=== PATIENT | male | born 1965 | race Caucasian/White ===

== ENCOUNTER 2020-02-13 04:46 | Emergency (ER) | payer BC, OTHER ==
--- NOTE | 2020-02-13 21:35 | ER ---
Nurse's Notes [facility] Name: Tayo Ferraro Age: 54 yrs Sex: Male : 1965 Arrival Date: 02/13/2020 Time: 20:48 Bed Waiting Private MD: Diagnosis: Presentation: 02/12 21:22 Note Called pt twice from the lobby. No answer. ca1 ED Course: 20:48 Patient arrived in ED. cl3 Administered Medications: No medications were administered Outcome: 21:34 Patient left the ED. ca1 Signatures: Thao Fernandez RN RN ca1 Christy Santos cl3
== END 2020-02-13 21:34 | disposition left against medical advice (07) ==
LOC: ER 04:46
DX: Z02.89 Encounter for other administrative examinations (principal)